=== PATIENT | female | born 1985 ===

== ENCOUNTER 2018-03-18 12:36 | Inpatient (IN) | payer OTHER ==
--- NOTE | 2018-03-18 13:42 | OBHP ---
Datetime: 03/18/2018 13:25 IP Adm Impression: Term, intrauterine ; No Active Labor; Intact Membranes IP Chief Complaint Other: latent phase of labor IP Admit Plan: Observation/Evaluation Admit Comment, IP Provider: 32yo IUP at 40w4d c/o CTX today. No SROM. no VB. +FM PMH: denies PSH: denies NKA PSoH: denies smoking ETOH drugs A: IUP at 40w latnet phase of labor PLAN: ambulate; re-check in 1-2h Abdomen - PN: Normal Back - PN: Normal Lungs - PN: Normal Heart - PN: Normal Thyroid - PN: Normal Neurologic - PN: Normal HEENT - PN: Normal General - PN: Normal Presentation-Admit: Vertex FHR - Baseline A Provider: 135 Membranes, Provider: Intact Pool Provider: Negative IP Hx Assessment: The History has been Reviewed and is Current EGA AdmitDate IP: 40.4 Vital Signs Provider: Reviewed IP Chief Complaint: Uterine contractions NICHD Variability Prov Fetus A: Moderate 6-25bpm NICHD Accel Fetus A IP Provider: 15X15 FHR Category Provider Fetus A: Category I NICHD Decel Fetus A IP Provider: None Dilatation, Provider: 3 Effacement, Provider: 50 Station, Provider: -2 Genitourinary Exam: Normal
[2018-03-18 16:08] VITALS: BMI 29.2
[2018-03-18] MEDS ORDERED: Lactated Ringer's 1,000 ML IV ONE (16:08)
[2018-03-18] MEDS ORDERED: Oxytocin 30 UNIT 30 UNITS/500 ML BAG IV ONE (16:29)
[2018-03-18] MEDS ORDERED: OXYTOCIN/0.9 % NS 20 UNIT/1,000 ML BAG IV SCH (16:30)
[2018-03-18] MEDS: Lactated Ringer's 1,000 ML IV SCH (16:45)
[2018-03-18 17:32] LABS: BASO # 0.1 K/uL (0.0-0.2); BASO % 0.7 % (0.0-2.0); EOS # 0.1 K/uL (0.0-0.7); EOS % 0.5 % (0.0-4.0); HEMOGLOBIN 10.3 g/dL (12.0-16.0); LYMPH # 2.4 K/uL (1.0-4.3); LYMPH % 22.5 % (20.0-40.0); MEAN CELL VOLUME 86.8 fl (81.0-99.0); MEAN CORPUSCULAR HEMOGLOBIN 28.8 pg (27.0-31.0); MEAN CORPUSCULAR HGB CONC 33.2 g/dL (33.0-37.0); MEAN PLATELET VOLUME 8.4 fl (7.2-11.7); MONO # 0.8 K/uL (0.0-0.8); MONO % 7.7 % (0.0-10.0); NEUT # 7.2 K/uL (1.8-7.0); NEUT % 68.6 % (50.0-75.0); RBC 3.56 Mil/uL (3.80-5.20); RED CELL DISTRIBUTION WIDTH 15.7 % (11.5-14.5); WHITE BLOOD COUNT 10.5 K/uL (4.8-10.8)
[2018-03-18] MEDS ORDERED: Fentanyl/Bupivacaine HCl 250 ML EPI ONE (18:10)
[2018-03-18] MEDS ORDERED: Bupivacaine HCl 0.5% PF (30 ml) Inj ONE ×2 (19:12→21:02)
[2018-03-18] MEDS ORDERED: Lidocaine 1% Inj (20ml) ONE (22:34)
[2018-03-19] MEDS: Lactated Ringer's 1,000 ML IV SCH ×3 (00:30→21:14)
--- NOTE | 2018-03-19 07:05 | OBADHP ---
Datetime: 03/18/2018 16:03 Admit Comment, IP Provider: 32yo IUP at 40w4d c/o CTX today. No SROM. no VB. +FM PMH: denies PSH: denies NKA PSoH: denies smoking ETOH drugs A: IUP at 40w Labor; painful CTX PLANL admit for pain managment and observe labor progress Presentation-Admit: Vertex Membranes, Provider: Intact Pool Provider: Negative IP Hx Assessment: The History has been Reviewed and is Current IP Chief Complaint: Uterine contractions NICHD Accel Fetus A IP Provider: 15X15 Dilatation, Provider: 4 EGA AdmitDate IP: 40.4 IP Adm Impression: Term, intrauterine ; Intact Membranes IP Admit Plan: Initiate labor protocol Datetime: 03/18/2018 13:25 IP Chief Complaint Other: latent phase of labor Abdomen - PN: Normal Back - PN: Normal Lungs - PN: Normal Heart - PN: Normal Thyroid - PN: Normal Neurologic - PN: Normal HEENT - PN: Normal General - PN: Normal FHR - Baseline A Provider: 135 Vital Signs Provider: Reviewed NICHD Variability Prov Fetus A: Moderate 6-25bpm FHR Category Provider Fetus A: Category I NICHD Decel Fetus A IP Provider: None Effacement, Provider: 50 Station, Provider: -2 Genitourinary Exam: Normal
--- NOTE | 2018-03-19 07:10 | OBPN ---
Datetime: 03/19/2018 06:30 IP Progress Impression: Normal progression of labor; Reassuring heart rate IP Informed Consent Obtain: Vaginal Delivery IP Progress Plan: Continue present management; Anticipate Vaginal Delivery Membranes, Provider: Ruptured Contraction Comments Provider: 2-5m Presentation-Admit: Vertex IP Progress Note Comment: Notified that she was fully dilated 6a. She rec'd epidural. AROM done by Dr Pearson (OB fellow) at 23:40pm at 8cm. She progressed to 9cm a t 1:30am on her own/No pitocin A; Second stage of labor/ reassuring tracing PLAN: monitor progress/will start pushing with nurse after laboring down FHR Category Provider Fetus A: Category I Dilatation, Provider: 10 NICHD Decel Fetus A IP Provider: None Datetime: 03/18/2018 16:03 Pool Provider: Negative NICHD Accel Fetus A IP Provider: 15X15 Datetime: 03/18/2018 13:25 FHR - Baseline A Provider: 135 Vital Signs Provider: Reviewed NICHD Variability Prov Fetus A: Moderate 6-25bpm Effacement, Provider: 50 Station, Provider: -2
[2018-03-19] MEDS ORDERED: Oxytocin 30 UNIT 30 UNITS/500 ML BAG IV ONE (10:28)
--- NOTE | 2018-03-19 10:55 | OBPN ---
Datetime: 03/19/2018 10:50 IP Procedures: Sterile Vag Exam IP Progress Plan: Continue present management; Augmentation FHR - Baseline A Provider: 150s IP Fetus A Comments: Variable decelerations with pushing. quick recovery to baseline IP Progress Note Comment: Pt in process of pushing. Plan to start pitocin augmentation to assist pu shing. Discussed plan with patient and all patient questions answered. Vital Signs Provider: Reviewed; Within Normal Limits NICHD Variability Prov Fetus A: Moderate 6-25bpm Dilatation, Provider: 10 Effacement, Provider: 100 Station, Provider: -1 NICHD Decel Fetus A IP Provider: Variable
[2018-03-19] MEDS ORDERED: ceFAZolin IV 2 gm in Dextrose 2 GM/50 ML BAG IVPB ONE (11:47)
--- NOTE | 2018-03-19 12:03 | OBPN ---
Datetime: 03/19/2018 11:59 IP Progress Impression: Arrest of dilatation/descent IP Informed Consent Obtain: Section Delivery; Risks, Benefits and Alternatives Discussed IP Procedures: Sterile Vag Exam IP Progress Plan: Deliver- Section FHR - Baseline A Provider: 150s-160s IP Progress Note Comment: Pt pushing for 3 hours without progress. Discussed with patient need for due to arrest of descent. Discussed the R/B/A of surgery with patient and all patient ques tions answered. Anesthesia notified. Vital Signs Provider: Reviewed; Within Normal Limits NICHD Variability Prov Fetus A: Moderate 6-25bpm Dilatation, Provider: 10 Effacement, Provider: 100 Station, Provider: -1 NICHD Decel Fetus A IP Provider: Variable
[2018-03-19] MEDS ORDERED: Oxycodone/Acetaminophen 5/325 mg Tab PO PRN ×2 (13:18)
[2018-03-19] MEDS ORDERED: DiphenhydrAMINE 50 mg/ml Inj IVP PRN (16:35)
[2018-03-19] MEDS: Simethicone 80 mg Chewtab PO SCH (19:00)
[2018-03-20] MEDS: Simethicone 80 mg Chewtab PO SCH ×3 (01:35→17:00)
[2018-03-20] MEDS ORDERED: DiphenhydrAMINE 50 mg/ml Inj IVP PRN (02:07)
[2018-03-20] MEDS ORDERED: Oxycodone/Acetaminophen 5/325 mg Tab PO PRN (02:07)
[2018-03-20] MEDS ORDERED: Lactated Ringer's 1,000 ML IV SCH (02:07)
[2018-03-20 08:43] LABS: HEMOGLOBIN 8.5 g/dL (12.0-16.0); MEAN CELL VOLUME 86.7 fl (81.0-99.0); MEAN CORPUSCULAR HEMOGLOBIN 28.6 pg (27.0-31.0); RBC 2.98 Mil/uL (3.80-5.20); RED CELL DISTRIBUTION WIDTH 15.6 % (11.5-14.5)
[2018-03-20] MEDS: Prenatal Multivit/Folic Acid/Iron Tab PO SCH (08:59)
[2018-03-20] MEDS ORDERED: Prenatal Multivit/Folic Acid/Iron Tab PO SCH (09:00)
[2018-03-20] MEDS ORDERED: Multivitamin With Minerals Tab PO SCH (09:00)
--- NOTE | 2018-03-20 09:34 | OBDS ---
DELIVERY PERSONNEL Delivery Doctor: Jason Paulson MD Director Imaging: Day Jaffe RN, rn Anesthesiologist: alda valadez Resident: lavon lange MATERNAL INFORMATION Delivery Anesthesia: Epidural Medications in Delivery: ptocin 30 u ivpb / methergin 0.[address] valadez Estimated Blood Loss (ml): 800 Maternal Complications: None Other Maternal Complications: faliure to descent Provider Comments: 1' LFT C/S Pt delivered viable male with apgars 9/9. 8#10oz. Normal uterus, tubes and ovaries bilate rally.No complications. EBL 800cc IVF 1500cc LR UO 200cc clear No complications. Refer to dictation. LABOR SUMMARY EDC: 03/14/2018 00:00 No. Babies in Womb: 1 Attempted: No Labor Anesthesia: Epidural LABOR INFORMATION Reason for Induction: Not Applicable Onset of Labor: 03/18/2018 18:00 Complete Dilatation: 03/19/2018 05:30 Oxytocin: Augmentation Group B Beta Strep: Negative Group B Beta Strep: Negative Antibiotics # of Doses: ancef 2 grams vpb Steroids Given: None Reason Steroids Not Administered: Not Applicable MEMBRANES Membranes Rupture Method: Artificial Membranes Rupture Method: Artificial Membranes Rupture Method: Artificial Membranes Rupture Method: Artificial Membranes Rupture Method: Artificial Membranes Rupture Method: Artificial Membranes Rupture Method: Artificial Membranes Rupture Method: Artificial Membranes Rupture Method: Artificial Membranes Rupture Method: Artificial Membranes Rupture Method: Artificial Membranes Rupture Method: Artificial Membranes Rupture Method: Artificial Membranes Rupture Method: Artificial Membranes Rupture Method: Artificial Membranes Rupture Method: Artificial Membranes Rupture Method: Artificial Membranes Rupture Method: Artificial Membranes Rupture Method: Artificial Membranes Rupture Method: Artificial Membranes Rupture Method: Artificial Membranes Rupture Method: Artificial Membranes Rupture Method: Artificial Membranes Rupture Method: Artificial Membranes Rupture Method: Artificial Membranes Rupture Method: Artificial Rupture of Membranes: 03/18/2018 23:41 Rupture of Membranes: 03/18/2018 23:41 Rupture of Membranes: 03/18/2018 23:41 Length of Rupture (hrs): 12.75 Length of Rupture (hrs): 12.75 Length of Rupture (hrs): 12.75 Amniotic Fluid Color: Clear Amniotic Fluid Color: Clear Amniotic Fluid Color: Clear Amniotic Fluid Color: Clear Amniotic Fluid Color: Clear Amniotic Fluid Color: Clear Amniotic Fluid Color: Clear Amniotic Fluid Color: Clear Amniotic Fluid Color: Clear Amniotic Fluid Color: Clear Amniotic Fluid Color: Clear Amniotic Fluid Color: Clear Amniotic Fluid Color: Clear Amniotic Fluid Color: Clear Amniotic Fluid Color: Clear Amniotic Fluid Color: Clear Amniotic Fluid Color: Clear Amniotic Fluid Color: Clear Amniotic Fluid Color: Clear Amniotic Fluid Color: Clear Amniotic Fluid Color: Clear Amniotic Fluid Color: clear fluid / end mec Amniotic Fluid Color: Clear Amniotic Fluid Color: Clear Amniotic Fluid Color: Clear Amniotic Fluid Color: Clear Amniotic Fluid Amount: Moderate Amniotic Fluid Amount: Moderate Amniotic Fluid Amount: Moderate Amniotic Fluid Amount: Moderate Amniotic Fluid Amount: Moderate Amniotic Fluid Amount: Moderate Amniotic Fluid Amount: Moderate Amniotic Fluid Amount: Moderate Amniotic Fluid Amount: Moderate Amniotic Fluid Amount: Moderate Amniotic Fluid Amount: Moderate Amniotic Fluid Amount: Moderate Amniotic Fluid Amount: Moderate Amniotic Fluid Amount: Moderate Amniotic Fluid Amount: Moderate Amniotic Fluid Amount: Moderate Amniotic Fluid Amount: Moderate Amniotic Fluid Amount: Moderate Amniotic Fluid Amount: Moderate Amniotic Fluid Amount: Moderate Amniotic Fluid Amount: Moderate Amniotic Fluid Amount: Small Amniotic Fluid Amount: Small Amniotic Fluid Amount: Moderate Amniotic Fluid Amount: Moderate Amniotic Fluid Amount: Moderate Amniotic Fluid Odor: Normal Amniotic Fluid Odor: Normal Amniotic Fluid Odor: Normal Amniotic Fluid Odor: Normal Amniotic Fluid Odor: Normal Amniotic Fluid Odor: Normal Amniotic Fluid Odor: Normal Amniotic Fluid Odor: Normal Amniotic Fluid Odor: Normal Amniotic Fluid Odor: Normal Amniotic Fluid Odor: Normal Amniotic Fluid Odor: Normal Amniotic Fluid Odor: Normal Amniotic Fluid Odor: Normal Amniotic Fluid Odor: Normal Amniotic Fluid Odor: Normal Amniotic Fluid Odor: Normal Amniotic Fluid Odor: Normal Amniotic Fluid Odor: Normal Amniotic Fluid Odor: Normal Amniotic Fluid Odor: Normal Amniotic Fluid Odor: Normal Amniotic Fluid Odor: Normal Amniotic Fluid Odor: Normal Amniotic Fluid Odor: Normal Amniotic Fluid Odor: Normal STAGES OF LABOR Stage 1 hrs: 11 Stage 1 min: 30 Stage 2 hrs: 6 Stage 2 min: 56 Stage 3 hrs: 0 Stage 3 min: 1 Total Time in Labor hrs: 18 Total Time in Labor min: 27 VAGINAL DELIVERY Episiotomy: None Laceration Extension: N/A Laceration Type: None CSECTION DELIVERY Primary Indication: Arrest of Descent Secondary Indication: Failure of Descent CSection Urgency: Non Elective Labor: Labor CSection Incision: Lower Uterine Transverse BABY A INFORMATION Delivery Date/Time: 03/19/2018 12:26 Method of Delivery: Born in Route : Yes : N/A Forceps: N/A Vacuum Extraction: N/A Shoulder Dystocia : No SHOULDER DYSTOCIA BABY A Infant Delivery Date/Time: 03/19/2018 12:26 PRESENTATION/POSITION BABY A Presentation: Cephalic Cephalic Presentation: Vertex Breech Presentation: N/A PLACENTA INFORMATION BABY A Placenta Delivery Time : 03/19/2018 12:27 Placenta Method of Delivery: Manual Removal Placenta Status: Delivered SCORES BABY A Heart Rate 1 min: >100 bpm Resp Effort 1 min: Good Cry Reflex Irritability 1 min: Cough or Sneeze or Pulls Away Muscle Tone 1 min: Active Motion Color 1 min: Body [place], Extremities Blue Resuscitation Effort 1 min: Tactile Stimulation SCORE 1 MIN: 9 Heart Rate 5 min: >100 bpm Resp Effort 5 min: Good Cry Reflex Irritability 5 min: Cough or Sneeze or Pulls Away Muscle Tone 5 min: Active Motion Color 5 min: Body [place], Extremities Blue SCORE 5 MIN: 9 Heart Rate 10 min: >100 bpm Resp Effort 10 min: Good Cry Reflex Irritability 10 min: Cough or Sneeze or Pulls Away Muscle Tone 10 min: Active Motion Color 10 min: Completely [place] SCORE 10 MIN: 10 INFANT INFORMATION BABY A Gestational Age at Delivery: 40.4 Gestational Status: Term Outcome : Liveborn Condition : Stable Sex: Female IDENTIFICATION/MEDS BABY A ID Band Number: [id number] ID Band Location: Left Arm Sensor Location : Left Leg WEIGHT/LENGTH BABY A Infant Birthweight (gms): 3900 Infant Weight (lb): 8 Infant Weight (oz): 10 Infant Length Inches: 21.00 Infant Length cms: 53.3 CORD INFORMATION BABY A No. Cord Vessels: 3 Nuchal Cord : N/A Nuchal Cord Other: no True Knot: no Cord pH Baby Arterial: yes Cord Blood Taken: Yes Banking/Donate Info: no Infant Suction: Mouth; Nose ASSESSMENT BABY A Infant Complications: None Physical Findings at Delivery: Within Normal Limits Infant Respirations: Appears Normal Options Trader/ALS Called : No Care By: dr emerson / geena ramos rn Transferred To: Remains with Mother
--- NOTE | 2018-03-20 09:34 | OBDS ---
DELIVERY PERSONNEL Delivery Doctor: Jason Paulson MD [employer] Day Worker: Day Jaffe RN, rn Anesthesiologist: alda valadez Resident: lavon lange MATERNAL INFORMATION Delivery Anesthesia: Epidural Medications in Delivery: ptocin 30 u ivpb / methergin 0.[address] valadez Estimated Blood Loss (ml): 800 Maternal Complications: None Other Maternal Complications: faliure to descent Provider Comments: 1' LFT C/S Pt delivered viable male with apgars 9/9. 8#10oz. Normal uterus, tubes and ovaries bilate rally.No complications. EBL 800cc IVF 1500cc LR UO 200cc clear No complications. Refer to dictation. LABOR SUMMARY EDC: 03/14/2018 00:00 No. Babies in Womb: 1 Attempted: No Labor Anesthesia: Epidural LABOR INFORMATION Reason for Induction: Not Applicable Onset of Labor: 03/18/2018 18:00 Complete Dilatation: 03/19/2018 05:30 Oxytocin: Augmentation Group B Beta Strep: Negative Antibiotics # of Doses: ancef 2 grams vpb Steroids Given: None Reason Steroids Not Administered: Not Applicable MEMBRANES Membranes Rupture Method: Artificial Rupture of Membranes: 03/18/2018 23:41 Length of Rupture (hrs): 12.75 Amniotic Fluid Color: Clear Amniotic Fluid Amount: Moderate Amniotic Fluid Odor: Normal STAGES OF LABOR Stage 1 hrs: 11 Stage 1 min: 30 Stage 2 hrs: 6 Stage 2 min: 56 Stage 3 hrs: 0 Stage 3 min: 1 Total Time in Labor hrs: 18 Total Time in Labor min: 27 VAGINAL DELIVERY Episiotomy: None Laceration Extension: N/A Laceration Type: None CSECTION DELIVERY Primary Indication: Arrest of Descent Secondary Indication: Failure of Descent CSection Urgency: Non Elective Labor: Labor CSection Incision: Lower Uterine Transverse BABY A INFORMATION Infant Delivery Date/Time: 03/19/2018 12:26 Method of Delivery: Born in Route : Yes : N/A Forceps: N/A Vacuum Extraction: N/A Shoulder Dystocia : No SHOULDER DYSTOCIA BABY A Infant Delivery Date/Time: 03/19/2018 12:26 PRESENTATION/POSITION BABY A Presentation: Cephalic Cephalic Presentation: Vertex Breech Presentation: N/A PLACENTA INFORMATION BABY A Placenta Delivery Time : 03/19/2018 12:27 Placenta Method of Delivery: Manual Removal Placenta Status: Delivered SCORES BABY A Heart Rate 1 min: >100 bpm Resp Effort 1 min: Good Cry Reflex Irritability 1 min: Cough or Sneeze or Pulls Away Muscle Tone 1 min: Active Motion Color 1 min: Body [place], Extremities Blue Resuscitation Effort 1 min: Tactile Stimulation SCORE 1 MIN: 9 Heart Rate 5 min: >100 bpm Resp Effort 5 min: Good Cry Reflex Irritability 5 min: Cough or Sneeze or Pulls Away Muscle Tone 5 min: Active Motion Color 5 min: Body [place], Extremities Blue SCORE 5 MIN: 9 Heart Rate 10 min: >100 bpm Resp Effort 10 min: Good Cry Reflex Irritability 10 min: Cough or Sneeze or Pulls Away Muscle Tone 10 min: Active Motion Color 10 min: Completely [place] SCORE 10 MIN: 10 INFANT INFORMATION BABY A Gestational Age at Delivery: 40.4 Gestational Status: Term Infant Outcome : Liveborn Condition : Stable Infant Sex: Female IDENTIFICATION/MEDS BABY A ID Band Number: [id number] ID Band Location: Left Arm Sensor Location : Left Leg WEIGHT/LENGTH BABY A Infant Birthweight (gms): 3900 Weight (lb): 8 Weight (oz): 10 Infant Length Inches: 21.00 Infant Length cms: 53.3 CORD INFORMATION BABY A No. Cord Vessels: 3 Nuchal Cord : N/A Nuchal Cord Other: no True Knot: no Cord pH Baby Arterial: yes Cord Blood Taken: Yes Banking/Donate Info: no Suction: Mouth; Nose ASSESSMENT BABY A Complications: None Physical Findings at Delivery: Within Normal Limits Respirations: Appears Normal Wire Splicer/ALS Called : No Infant Care By: dr emerson / geena ramos rn Transferred To: Remains with Mother
[2018-03-20] MEDS: Oxycodone/Acetaminophen 5/325 mg Tab PO PRN (20:33)
--- NOTE | 2018-03-20 21:42 | OP ---
PROCEDURE DATE: 03/19/2018 PREOPERATIVE DIAGNOSIS: Arrest of descent, in active labor. POSTOPERATIVE DIAGNOSIS: Arrest of descent, in active labor. OPERATION PERFORMED: Primary low-flap transverse section via Pfannenstiel incision. OPERATIVE FINDINGS: Viable infant female with Apgars of 9 and 9 at one and five minutes respectively. 8 pounds 10 ounces. Normal uterus, normal tubes and ovaries bilaterally. ESTIMATED BLOOD LOSS: 800 mL. INTRAVENOUS FLUIDS: 1500 mL of lactate Ringer's. URINE OUTPUT: 200 mL of clear urine. SURGEON: Hector Paulson MD PLUMBER'S HELPER: Dr. Javon Lu ANESTHESIOLOGIST: Dr. Lino ANESTHESIA: Epidural. COMPLICATIONS: None. DESCRIPTION OF PROCEDURE: The patient was taken to the operating room where epidural anesthesia was found to be adequate. The patient was prepped and draped in a normal sterile fashion in the dorsal supine position with leftward tilt. A Pfannenstiel skin incision was made with a scalpel. This was carried down through to the underlying layer of fascia with the scalpel. A midline defect was made in the fascial layer with the scalpel. The fascial incision was then extended bilaterally sharply with curved Cid scissors. The fascial layer was from the underlying rectus muscles both bluntly and sharply with curved Cid scissors. The rectus muscles were at the midline. The peritoneum was then identified, tented up with Sonja clamps x2, entered sharply with Metzenbaum scissors. This peritoneal incision was then extended superiorly and inferiorly with good visualization of the urinary bladder. A bladder blade was inserted into the abdomen. The vesicouterine peritoneum was then identified, tented up with Sonja clamps x2, and entered sharply with Metzenbaum scissors. This peritoneal incision was then extended superiorly and inferiorly with good visualization of the urinary bladder. A bladder flap was created digitally. The [place] retractors were placed over the urinary bladder. The uterus was incised with the scalpel. The uterine incision was extended bilaterally bluntly. The infant's head was delivered atraumatically. Nose and mouth were suctioned with bulb suction. The remainder of the infant was delivered without complication. Cord was clamped and cut. The was handed off to awaiting pediatricians. Cord gases were collected. Cord blood was collected. The placenta was removed manually. The uterus was cleared of all clots and debris. The uterine incision was repaired with 0 Vicryl in a running, locked fashion. A second layer of the same suture was used to imbricate the first to obtain excellent hemostasis. Re-inspection of the uterine incision proved excellent hemostasis. The abdomen and pelvis were irrigated with copious amounts of warm normal saline. Re-inspection of the uterine incision proved hemostasis. All instruments were removed from the patient. The peritoneal layer was closed with a running stitch of 2-0 chromic. The rectus muscles were reapproximated in the midline with a running stitch of 2-0 chromic. The fascial layer was closed with a running stitch of 0 Vicryl. The subcutaneous tissue was closed with a running stitch of 3-0 plain. The skin was closed with a subcutaneous stitch of 3-0 Vicryl. The patient tolerated the procedure well. All sponge count, lap count, and needle counts were correct x2. The patient was given 2 g of Ancef just prior to the beginning of the procedure. There were no complications. The patient was taken to the recovery room in awake and stable condition. Hector Paulson MD
[2018-03-21] MEDS: Oxycodone/Acetaminophen 5/325 mg Tab PO PRN ×2 (04:12→11:30)
[2018-03-21] MEDS: Simethicone 80 mg Chewtab PO SCH ×3 (04:13→17:33)
--- NOTE | 2018-03-21 07:10 | OBPPN ---
Datetime: 03/21/2018 07:05 PP Pain Prov: Within normal limits PP Nausea Prov: Denies PP Flatus Prov: Yes PP BM Prov: No PP Abdomen/Uterus Prov: Normal PP Lochia Prov: Normal PP C/S Incision Prov: Normal PP Progress Prov: Normal PP Comments Phys Exam Prov: Incision w/ steri strips PP Impression Prov: Normal progression PP Plan Prov: Continue present management PP Progress Note Prov: POD 2 s/p primary c/s, doing well, breast feeding Continue current care Vital Signs Provider PP: Reviewed
[2018-03-21] MEDS: Prenatal Multivit/Folic Acid/Iron Tab PO SCH (08:40)
[2018-03-22] MEDS: Simethicone 80 mg Chewtab PO SCH ×2 (02:38→09:53)
[2018-03-22] MEDS: Prenatal Multivit/Folic Acid/Iron Tab PO SCH (09:52)
[2018-03-22] MEDS: Oxycodone/Acetaminophen 5/325 mg Tab PO PRN (09:53)
--- NOTE | 2018-03-22 10:09 | OBDCSUM ---
Datetime: 03/22/2018 09:41 Discharged to, Provider: Home Follow up at, Provider: [facility] Disch Instr Activity: Normal activity Disch Instr Diet: Regular Discharge Diagnosis, Provider: Term Delivered Follow up in weeks, Provider: in 1 week Disch Activity Restrictions: No exercising; No lifting
--- NOTE | 2018-03-22 10:09 | OBPPN ---
Datetime: 03/22/2018 10:07 PP Pain Prov: Within normal limits PP Nausea Prov: Denies PP Flatus Prov: Yes PP BM Prov: No PP Breasts Prov: Normal PP Heart Prov: Normal PP Lungs Prov: Normal PP Abdomen/Uterus Prov: Normal PP Lochia Prov: Normal PP Vulva/Perineum Prov: Normal PP CVA Tenderness Prov: Normal PP Extremities Prov: Normal PP C/S Incision Prov: Normal PP Progress Prov: Normal PP Impression Prov: Normal progression PP Plan Prov: Continue present management PP Progress Note Prov: Shgfe feel fine. POD 3 WIll give Dulcolax and discharge home/follow up in 1-2w Vital Signs Provider PP: Reviewed; Within Normal Limits
--- NOTE | 2018-03-22 11:34 | OBPPN ---
Datetime: 03/20/2018 17:56 PP Pain Prov: Within normal limits PP Nausea Prov: Denies PP Flatus Prov: Yes PP Breasts Prov: Normal PP Heart Prov: Normal PP Lungs Prov: Normal PP Abdomen/Uterus Prov: Normal PP Lochia Prov: Normal PP Vulva/Perineum Prov: Normal PP CVA Tenderness Prov: Normal PP Extremities Prov: Normal PP Progress Prov: Normal PP Comments Phys Exam Prov: Abd: Soft, Nt, BS- present UT- Firm Incision: Clean and dry PP Impression Prov: Normal progression PP Plan Prov: Continue present management PP Progress Note Prov: S/P Section, POD #1 Clinically Stable. Plan: Continue care. Vital Signs Provider PP: Reviewed
[2018-03-22 20:12] VITALS: BP 103/64; PULSE 81; RESP 18; TEMP 97; O2SAT 96
== END 2018-03-22 15:05 | disposition home or self-care (01) | DRG 788 ==
LOC: H.EROB2 12:36 → H.EROB 12:38 → H.EROB2 16:08 → H.L&D 16:08 → H.OB/GYN 03-19 17:07
PROVIDERS: ADMIT Obstetrics & Gynecology; ATTEND Obstetrics & Gynecology
PROC: 10D00Z1 Extraction of Products of Conception, Low, Open Approach (ICD-10-PCS; principal; 2018-03-18)
PROC: 4A1HXCZ Monitoring of Products of Conception, Cardiac Rate, External Approach (ICD-10-PCS; 2018-03-18)
DX: O62.1 Secondary uterine inertia (principal); Z3A.40 40 weeks gestation of pregnancy; Z37.0 Single live birth; O32.4XX0 Maternal care for high head at term, not applicable or unspecified